=== PATIENT | female | born 1930 | race Hispanic/Latino ===

== ENCOUNTER 2022-04-13 13:42 | Emergency (ER) | payer MEDICARE, OTHER ==
[~2022-04-13] VITALS: Ht 162.6 cm; Wt 52.2 kg
[2022-04-13 18:18] VITALS: BP 118/82
== END 2022-04-13 18:38 ==
LOC: ER 13:45
DX: S00.83XA Contusion of other part of head, initial encounter (principal); W18.39XA Other fall on same level, initial encounter; Y92.89 Other specified places as the place of occurrence of the external cause; I10 Essential (primary) hypertension
CPT/HCPCS: 70450; 72125; 99284